=== PATIENT | female | born 1980 | race Hispanic/Latino ===

== ENCOUNTER 2024-03-06 00:04 | Emergency (ER) | payer BC ==
[~2024-03-06] VITALS: Ht 162.6 cm; Wt 77.1 kg
[2024-03-06 00:10] VITALS: PULSE 92; RESP 16; TEMP 98.6; O2SAT 100
[2024-03-06] MEDS ORDERED: ULTRAM 50MG50 MG PO (00:27)
[2024-03-06] MEDS ORDERED: CEPHALEXIN500 MG PO (00:27)
== END 2024-03-06 00:33 | disposition home or self-care (01) ==
LOC: ER 00:08
DX: S61.306A Unspecified open wound of right little finger with damage to nail, initial encounter (principal); X58.XXXA Exposure to other specified factors, initial encounter
CPT/HCPCS: 99283